=== PATIENT | female | born 1995 | race Caucasian/White ===

== ENCOUNTER 2019-08-27 00:15 | Observation (INO) | payer MEDICAID ==
[~2019-08-27] VITALS: Ht 152.4 cm; Wt 78.9 kg
== END 2019-08-27 02:30 | disposition home or self-care (01) ==
LOC: 8 EST LDRP 00:15
PROVIDERS: ADMIT Obstetrics & Gynecology; ATTEND Obstetrics & Gynecology
DX: O62.9 Abnormality of forces of labor, unspecified (principal); Z3A.37 37 weeks gestation of pregnancy
CPT/HCPCS: 99281; G0378

== ENCOUNTER 2019-09-07 15:04 | Inpatient (IN) | payer MEDICAID ==
[~2019-09-07] VITALS: Ht 154.9 cm; Wt 79.8 kg
[2019-09-07] MEDS ORDERED: PREN1TAB23 (15:26)
[2019-09-07] MEDS ORDERED: DEXT 5%/LR + PITOCIN 20UNITS/L 1,000 ML IV SCH ×2 (15:58→23:29)
[2019-09-07] MEDS ORDERED: LIDOCAINE HCL 1% 20ML VIAL (Pyxis) INJ INFIL SCH (16:00)
[2019-09-07] MEDS ORDERED: NALOXONE HCL 0.4 MG/ML 1ML VIAL IM PRN (16:00)
[2019-09-07] MEDS ORDERED: CARBOPROST TROMETHAMINE 250 MCG/ML AMPUL IM PRN (16:00)
[2019-09-07] MEDS ORDERED: BUTORPHANOL TARTRATE 2 MG/ML VIAL IV PRN (16:00)
[2019-09-07] MEDS ORDERED: METHYLERGONOVINE MALEATE 0.2 MG/ML IM PRN (16:00)
[2019-09-07] MEDS ORDERED: MISOPROSTOL 100MCG TABLET VG SCH (16:00)
[2019-09-07] MEDS: LACTATED RINGERS 1,000 ML IV SCH ×2 (16:32→21:16)
[2019-09-07 16:35] LABS: CLARITY URINE CLEAR (CLEAR); COLOR URINE YELLOW (YELLOW); KETONES URINE 3+ (NEGATIVE); LEUKOCYTE ESTERASE URINE NEGATIVE (NEGATIVE); NITRITE URINE NEGATIVE (NEGATIVE); OCCULT BLOOD URINE NEGATIVE (NEGATIVE); PH URINE 5.5 (4.5-8.0); PROTEIN URINE NEGATIVE (NEGATIVE); SPECIFIC GRAVITY URINE 1.018 (1.005-1.030)
[2019-09-07 16:39] LABS: BASOPHILS % 0.1 % (0.0-2.0); EOSINOPHILS % 0.6 % (0.0-5.0); HEMATOCRIT. 39.6 % (36.0-48.0); HEMOGLOBIN. 13.3 g/dL (12.0-16.0); LYMPHOCYTES % 19.9 % (20.0-50.0); MEAN CORPUSCULAR HEMOGLOBIN 28.7 pg (28.0-32.0); MEAN CORPUSCULAR VOLUME 85.5 fL (81.0-99.0); MEAN PLATELET VOLUME 8.8 fl (7.4-10.4); NEUTROPHILS % 72.4 % (40.0-76.0); PLATELET 193 x1000/uL (130-400); RED BLOOD CELL COUNT 4.63 mill/uL (4.2-5.4); RED CELL DISTRIBUTION WIDTH 15.3 % (11.6-14.6)
[2019-09-07 16:45] LABS: *AMPHETAMINES SCREEN URINE NEGATIVE (NEGATIVE); *BARBITURATES SCREEN URINE NEGATIVE (NEGATIVE); *BENZODIAZEPINES SCREEN URINE NEGATIVE (NEGATIVE); *COCAINE SCREEN URINE NEGATIVE (NEGATIVE); METHADONE URINE SCREEN NEGATIVE (NEGATIVE)
[2019-09-07 16:46] LABS: CANNABINOID URINE SCREEN NEGATIVE (NEGATIVE); OPIATES URINE SCREEN NEGATIVE (NEGATIVE); PHENCYCLIDINE URINE SCREEN NEGATIVE (NEGATIVE)
[2019-09-07 16:49] LABS: INR 0.9; PARTIAL THROMBOPLASTIN TIME 28.1 sec (23.4-31.0); PROTHROMBIN TIME 9.9 sec (9.6-11.0)
[2019-09-07 17:30] LABS: HEPATITIS B SURFACE ANTIGEN NEGATIVE
[2019-09-07] MEDS ORDERED: FENTANYL CITRATE/PF 50MCG/ML 2ML VIAL ONE (21:57)
[2019-09-07] MEDS ORDERED: MORPHINE SULFATE/PF 1MG/ML 10ML AMP ONE (21:57)
[2019-09-07] MEDS ORDERED: METOCLOPRAMIDE HCL 10MG/2ML VIAL ONE (21:58)
[2019-09-07] MEDS ORDERED: CEFAZOLIN SODIUM 1000MG/VIAL ONE (21:58)
[2019-09-07] MEDS ORDERED: SODIUM CHLORIDE 0.9% 10ML VIAL ONE (21:58)
[2019-09-07] MEDS ORDERED: OXYTOCIN 10 UNITS/ML 1ML ONE ×2 (21:58→22:50)
[2019-09-07] MEDS ORDERED: ONDANSETRON HCL 4MG/2ML INJ ONE (21:58)
[2019-09-07] MEDS ORDERED: CITRIC ACID/SODIUM CITRATE SOLN 30ML UDC PO NR (22:00)
[2019-09-07] MEDS ORDERED: EPHEDRINE SULFATE 50MG/ML VIAL ONE (22:03)
[2019-09-07] MEDS ORDERED: KETOROLAC 30MG/ML VIAL IV PRN (23:30)
[2019-09-07] MEDS ORDERED: RHO(D) IMMUNE GLOBULIN 300 MCG/SYR IM PRN (23:30)
[2019-09-07] MEDS ORDERED: BISACODYL 10MG SUPP PR PRN (23:30)
[2019-09-07] MEDS ORDERED: IBUPROFEN 400MG TABLET PO PRN (23:30)
[2019-09-08 02:00] VITALS: BP 106/58
[2019-09-08 03:00] VITALS: BP 103/61
[2019-09-08 05:45] VITALS: BP 105/59
[2019-09-08] MEDS ORDERED: MEPERIDINE HCL/PF 25MG/ML CPJ IV PRN (07:00)
[2019-09-08] MEDS ORDERED: DIPHENHYDRAMINE 50MG/ML VIAL IV PRN (07:00)
[2019-09-08] MEDS ORDERED: ONDANSETRON HCL 4MG/2ML INJ IV PRN (07:00)
[2019-09-08] MEDS ORDERED: METOCLOPRAMIDE HCL 10MG/2ML VIAL IV PRN (07:00)
[2019-09-08] MEDS ORDERED: KETOROLAC 30MG/ML VIAL IV PRN (07:00)
[2019-09-08 07:03] LABS: BASOPHILS % 0.1 % (0.0-2.0); EOSINOPHILS % 0.4 % (0.0-5.0); HEMATOCRIT. 32.5 % (36.0-48.0); HEMOGLOBIN. 11.1 g/dL (12.0-16.0); LYMPHOCYTES % 16.1 % (20.0-50.0); MEAN CORPUSCULAR VOLUME 84.9 fL (81.0-99.0); MEAN PLATELET VOLUME 8.6 fl (7.4-10.4); MONOCYTES % 7.5 % (2.0-8.0); NEUTROPHILS % 75.9 % (40.0-76.0); PLATELET 168 x1000/uL (130-400); RED BLOOD CELL COUNT 3.82 mill/uL (4.2-5.4); RED CELL DISTRIBUTION WIDTH 14.9 % (11.6-14.6)
[2019-09-08 07:43] VITALS: BP 100/50
[2019-09-08 16:14] VITALS: BP 97/62
[2019-09-08 20:00] VITALS: BP 103/63
[2019-09-09] VITALS: BP 101/61
[2019-09-09] MEDS: IBUPROFEN 800MG TABLET PO PRN ×4 (01:36→23:08)
[2019-09-09 06:00] VITALS: BP 104/62
[2019-09-09 07:40] VITALS: BP 111/71
[2019-09-09 20:00] VITALS: BP 109/65
[2019-09-10] VITALS: BP 112/60
[2019-09-10 08:00] VITALS: BP 105/71
[2019-09-10] MEDS: IBUPROFEN 800MG TABLET PO PRN (09:13)
== END 2019-09-10 13:00 | disposition home or self-care (01) | DRG 540 ==
LOC: 8 EST LDRP 15:04 → OBSVTOIN 15:04 → 8EST 09-08 01:46
PROVIDERS: ADMIT Obstetrics & Gynecology; ATTEND Obstetrics & Gynecology
PROC: 10D00Z1 Extraction of Products of Conception, Low, Open Approach (ICD-10-PCS; principal; 2019-09-07)
DX: O36.63X0 Maternal care for excessive fetal growth, third trimester, not applicable or unspecified (principal); O24.420 Gestational diabetes mellitus in childbirth, diet controlled; D62 Acute posthemorrhagic anemia; D72.829 Elevated white blood cell count, unspecified; Z37.0 Single live birth; Z3A.39 39 weeks gestation of pregnancy; O90.81 Anemia of the puerperium
CPT/HCPCS: 36415; 76805; 80305; 81003; 85025; 86592; 86703; 86762; 86850; 86900; 87340; 88307; 99281; J0690; J1885; J2274; J2405; J2590; J2765; J3010; J3490; J7120